=== PATIENT | female | born 1945 | race Two or more races ===

== ENCOUNTER 2018-05-14 11:47 | Observation (INO) | payer MEDICARE, OTHER ==
[2018-05-14 11:47] VITALS: BMI 23.0
[2018-05-14] MEDS ORDERED: Sodium Chloride 0.9% 1,000 ML IV STA (12:07)
--- NOTE | 2018-05-14 12:10 | ED PDOC ---
HPI: Chest Pain Time Seen by Provider: 05/14/18 12:00 Chief Complaint (Nursing): Weakness/Neurological Deficit Chief Complaint (Provider): Chest pain History Per: Patient History/Exam Limitations: no limitations Onset/Duration Of Symptoms: Days (2) Current Symptoms Are (Timing): Still Present Additional Complaint(s): Pt. with chest pain left side with tingles down left arm. No numbness, weakness, headaches, dizziness, cough, dyspnea. No fever. No back pain, abd p ain, nausea, vomit, diarrhea. Past Medical History Reviewed: Nursing Documentation, Vital Signs Vital Signs: Last Vital Signs Temp 97 F L 05/14/18 11:50 Pulse 59 L 05/14/18 11:50 Resp 18 05/14/18 11:50 BP 165/81 H 05/14/18 11:50 Pulse Ox 99 05/14/18 11:50 - Medical History PMH: HTN, Hypercholesterolemia - Surgical History Surgical History: No Surg Hx - Family History Family History: States: Unknown Family Hx - Social History Alcohol: None Drugs: Denies - Home Medications Home Medications: Ambulatory Orders Medication Instructions Recorded Atorvastatin [Lipitor] 10 mg PO DAILY 05/14/18 Icosapent Ethyl [Vascepa] 1 gm PO DAILY 05/14/18 Naproxen/Esomeprazole Mag [Vimovo 20 mg PO DAILY 05/14/18 Dr 375-20 mg Tablet] - Allergies Allergies/Adverse Reactions: Allergies Allergy/AdvReac Type Severity Reaction Status Date / Time No Known Allergies Allergy Verified 05/14/18 08:51 Review of Systems ROS Statement: Except As Marked, All Systems Reviewed And Found Negative Cardiovascular: Positive for: Chest Pain Neurological: Negative for: Weakness, Numbness, Confusion Physical Exam - Reviewed Nursing Documentation Reviewed: Yes Vital Signs Reviewed: Yes - Physical Exam Appears: Positive for: Non-toxic, No Acute Distress Head Exam: Positive for: ATRAUMATIC, NORMAL INSPECTION, NORMOCEPHALIC Skin: Positive for: Normal Color, Warm, DRY Eye Exam: Positive for: EOMI, Normal appearance, PERRL ENT: Positive for: Normal ENT Inspection Neck: Positive for: Normal, Painless ROM Cardiovascular/Chest: Positive for: Regular Rate, Rhythm Respiratory: Positive for: CNT, Normal Breath Sounds Gastrointestinal/Abdominal: Positive for: Normal Exam, Soft. Negative for: Tenderness Back: Positive for: Normal Inspection. Negative for: L CVA Tenderness, R CVA Tenderness Extremity: Positive for: Normal ROM. Negative for: Tenderness, Pedal Edema Neurologic/Psych: Positive for: Alert, speeder hand II-XII, Oriented. Negative for: Motor/Sensory Deficits - Laboratory Results Result Diagrams: 05/14/18 12:27 05/14/18 12:27 Interpretation Of Abn Labs: no acute - ECG ECG: Positive for: Interpreted By Me, Viewed By Me ECG Rhythm: Positive for: Normal QRS, Normal ST Segment, Sinus Bradycardia (54) O2 Sat by Pulse Oximetry: 99 Pulse Ox Interpretation: Normal - Progress ED Course And Treament: 1538: Stable. AAOx3. Pain free. Multiple risk factors and age. Will obs tele for further evaluation. Disposition - Clinical Impression Clinical Impression: Chest pain - Patient ED Disposition Is Patient to be Admitted: Yes Counseled Patient/Family Regarding: Studies Performed, Diagnosis - Disposition Disposition Time: 15:39 Condition: FAIR - Pt Status Changed To: Hospital Disposition Of: Observation - POA Present On Arrival: None
[2018-05-14 12:40] LABS: BASO % 0.5 % (0.0-2.0); EOS # 0.2 K/uL (0.0-0.7); EOS % 2.6 % (0.0-4.0); HEMOGLOBIN 13.4 g/dL (12.0-16.0); LYMPH # 2.6 K/uL (1.0-4.3); LYMPH % 28.8 % (20.0-40.0); MEAN CELL VOLUME 93.4 fl (81.0-99.0); MEAN CORPUSCULAR HEMOGLOBIN 30.8 pg (27.0-31.0); MEAN PLATELET VOLUME 12.1 fl (7.2-11.7); MONO % 10.9 % (0.0-10.0); NEUT # 5.2 K/uL (1.8-7.0); NEUT % 57.2 % (50.0-75.0); RBC 4.35 Mil/uL (3.80-5.20); RED CELL DISTRIBUTION WIDTH 14.3 % (11.5-14.5); WHITE BLOOD COUNT 9.1 K/uL (4.8-10.8)
[2018-05-14 12:42] LABS: PROTHROMBIN TIME 10.8 Seconds (9.8-13.1)
[2018-05-14 12:45] LABS: PARTIAL THROMBOPLASTIN TIME 36.7 Seconds (25.6-37.1)
[2018-05-14 12:49] LABS: ALB/GLOB RATIO 1.1 (1.0-2.1); BLOOD UREA NITROGEN 18 mg/dl (7-17); CALCIUM 8.7 mg/dL (8.4-10.2); GFR NON-AFRICAN AMERICAN > 60
[2018-05-14 12:53] LABS: ALT/SGPT 33 U/L (9-52); AST/SGOT 32 U/L (14-36)
--- NOTE | 2018-05-14 16:00 | CP.PCM.HP ---
<Nikki Smalls - Last Filed: 05/14/18 17:07> History of Present Illness - History of Present Illness History of Present Illness: Patient seen and examined at bedside and history as per patient. 73F p/w complaint of chest pressure yesterday that was constant the whole day with associated tingling sensation into LEFT arm. Patient reports pressure worsened with deep inspiration and movement. She denies any associated headache, dizziness, fevers, chills, cough, pain/burning (reflux), or sick contacts. She admits to being slightly anxious due to recent work-up for RIGHT breast mass. Currently she is symptom free. PMD: Dr Bojorquez, Dr Batista (Breast Surgeon) PMH: HTN, RIGHT breast mass (last imaging showing BIRADS-2, rec Q6M f/u) PSH: Hysterectomy, Bladder suspension, Tonsillectomy ALL: NKDA Present on Admission - Present on Admission Any Indicators Present on Admission: No Review of Systems - Review of Systems All systems: reviewed and no additional remarkable complaints except - Cardiovascular Cardiovascular: Chest Pain - Respiratory Respiratory: Pain on Inspiration Past Patient History - Past Social History Alcohol: None Drugs: Denies - CARDIAC Hx Hypercholesterolemia: Yes Hx Hypertension: Yes Meds Allergies/Adverse Reactions: Allergies Allergy/AdvReac Type Severity Reaction Status Date / Time No Known Allergies Allergy Verified 05/14/18 08:51 Physical Exam - Constitutional Appears: Well, Non-toxic, No Acute Distress - Head Exam Head Exam: ATRAUMATIC, NORMAL INSPECTION - Eye Exam Eye Exam: EOMI, Normal appearance, PERRL - ENT Exam ENT Exam: Mucous Membranes Moist, Normal Exam - Neck Exam Neck exam: Positive for: Normal Inspection - Respiratory Exam Respiratory Exam: Clear to Auscultation Bilateral, NORMAL BREATHING PATTERN. absent: Rales, Rhonchi, Wheezes - Cardiovascular Exam Cardiovascular Exam: REGULAR RHYTHM, +S1, +S2. absent: JVD - GI/Abdominal Exam GI & Abdominal Exam: Normal Bowel Sounds, Soft. absent: Tenderness - Extremities Exam Extremities exam: Positive for: full ROM, normal capillary refill, normal inspection, pedal pulses present. Negative for: calf tenderness, pedal edema - Neurological Exam Neurological exam: Alert, Oriented x3 - Psychiatric Exam Psychiatric exam: Normal Affect, Normal Mood - Skin Skin Exam: Dry, Intact Results - Vital Signs Recent Vital Signs: Last Vital Signs Temp 36.1 C L 10/03/18 11:50 Pulse 59 L 05/14/18 11:50 Resp 18 05/14/18 11:50 BP 137/67 05/14/18 15:17 Pulse Ox 99 05/14/18 15:39 - Labs Result Diagrams: 05/14/18 12:27 05/14/18 12:27 Labs: Laboratory Results - last 24 hr 05/14/18 05/14/18 05/14/18 12:24 12:27 12:27 WBC 9.1 RBC 4.35 Hgb 13.4 Hct 40.6 MCV 93.4 MCH 30.8 MCHC 33.0 RDW 14.3 Plt Count 172 MPV 12.1 H Neut % (Auto) 57.2 Lymph % (Auto) 28.8 [place] % (Auto) 10.9 H Eos % (Auto) 2.6 Baso % (Auto) 0.5 Neut # (Auto) 5.2 Lymph # (Auto) 2.6 [place] # (Auto) 1.0 H Eos # (Auto) 0.2 Baso # (Auto) 0.0 PT INR APTT Sodium 143 Potassium 4.4 Chloride 110 H Carbon Dioxide 25 Anion Gap 12 BUN 18 H Creatinine 0.6 L Est GFR ( Amer) > 60 Est GFR (Non-Af Amer) > 60 POC Glucose (mg/dL) 79 Random Glucose 98 Calcium 8.7 Total Bilirubin 0.6 AST 32 ALT 33 Alkaline Phosphatase 84 Troponin I < 0.0120 Total Protein 7.8 Albumin 4.0 Globulin 3.7 Albumin/Globulin Ratio 1.1 05/14/18 12:27 WBC RBC Hgb Hct MCV MCH MCHC RDW Plt Count MPV Neut % (Auto) Lymph % (Auto) [place] % (Auto) Eos % (Auto) Baso % (Auto) Neut # (Auto) Lymph # (Auto) [place] # (Auto) Eos # (Auto) Baso # (Auto) PT 10.8 INR 1.0 APTT 36.7 Sodium Potassium Chloride Carbon Dioxide Anion Gap BUN Creatinine Est GFR ( Amer) Est GFR (Non-Af Amer) POC Glucose (mg/dL) Random Glucose Calcium Total Bilirubin AST ALT Alkaline Phosphatase Troponin I Total Protein Albumin Globulin Albumin/Globulin Ratio Assessment & Plan (1) Chest pain Assessment and Plan: History, EKG, CXR, and Troponins benign for cardiac etiology, but will rule out ACS. - Admit to Telemetry - Repeat EKG in AM - Trend Troponins - repeat CXR, 2-view Status: Acute (2) HTN (hypertension) Assessment and Plan: Asymptomatic, chronic, controlled. - resume home medications - Monitor BP - BP control Status: Chronic (3) DVT prophylaxis Assessment and Plan: Lovenox 40mg, SC, HS Status: Acute <Galvan,Dariel D - Last Filed: 05/15/18 09:30> Results - Vital Signs Recent Vital Signs: Last Vital Signs Temp 97.9 F 05/15/18 08:47 Pulse 71 05/15/18 08:47 Resp 20 05/15/18 08:47 BP 106/65 05/15/18 08:47 Pulse Ox 95 05/15/18 08:47 - Labs Result Diagrams: 05/14/18 12:27 05/14/18 12:27 Labs: Laboratory Results - last 24 hr 05/14/18 05/14/18 05/14/18 12:24 12:27 12:27 WBC 9.1 RBC 4.35 Hgb 13.4 Hct 40.6 MCV 93.4 MCH 30.8 MCHC 33.0 RDW 14.3 Plt Count 172 MPV 12.1 H Neut % (Auto) 57.2 Lymph % (Auto) 28.8 [place] % (Auto) 10.9 H Eos % (Auto) 2.6 Baso % (Auto) 0.5 Neut # (Auto) 5.2 Lymph # (Auto) 2.6 [place] # (Auto) 1.0 H Eos # (Auto) 0.2 Baso # (Auto) 0.0 PT INR APTT Sodium 143 Potassium 4.4 Chloride 110 H Carbon Dioxide 25 Anion Gap 12 BUN 18 H Creatinine 0.6 L Est GFR ( Amer) > 60 Est GFR (Non-Af Amer) > 60 POC Glucose (mg/dL) 79 Random Glucose 98 Calcium 8.7 Total Bilirubin 0.6 AST 32 ALT 33 Alkaline Phosphatase 84 Troponin I < 0.0120 Total Protein 7.8 Albumin 4.0 Globulin 3.7 Albumin/Globulin Ratio 1.1 05/14/18 05/14/18 05/15/18 12:27 19:59 05:18 WBC RBC Hgb Hct MCV MCH MCHC RDW Plt Count MPV Neut % (Auto) Lymph % (Auto) [place] % (Auto) Eos % (Auto) Baso % (Auto) Neut # (Auto) Lymph # (Auto) [place] # (Auto) Eos # (Auto) Baso # (Auto) PT 10.8 INR 1.0 APTT 36.7 Sodium Potassium Chloride Carbon Dioxide Anion Gap BUN Creatinine Est GFR ( Amer) Est GFR (Non-Af Amer) POC Glucose (mg/dL) Random Glucose Calcium Total Bilirubin AST ALT Alkaline Phosphatase Troponin I < 0.0120 < 0.0120 Total Protein Albumin Globulin Albumin/Globulin Ratio Attending/Attestation - Attestation I have personally seen and examined this patient.: Yes I have fully participated in the care of the patient.: Yes I have reviewed all pertinent clinical information: Yes
--- NOTE | 2018-05-14 16:31 | CARD ---
APPROVED REPORT Date of service: 05/14/2018 EKG Measurement Heart [id number] <Conclusion> Sinus bradycardia Otherwise normal ECG
--- NOTE | 2018-05-14 16:51 | RAD ---
Date of service: 05/14/2018 HISTORY: chest pain COMPARISON: No prior. FINDINGS: LUNGS: No active pulmonary disease. PLEURA: No significant pleural effusion identified, no pneumothorax apparent. CARDIOVASCULAR: Normal. OSSEOUS STRUCTURES: No significant abnormalities. VISUALIZED UPPER ABDOMEN: Normal. OTHER FINDINGS: None. IMPRESSION: No active disease.
[2018-05-14] MEDS: Omega-3-Acid Ethyl Esters 1 GM Cap PO SCH (21:11)
[2018-05-14] MEDS ORDERED: Enoxaparin 40 mg Syringe SC SCH (22:00)
[2018-05-15 08:47] VITALS: RESP 20
[2018-05-15] MEDS ORDERED: Pantoprazole 20 mg EC Tab PO SCH (09:00)
[2018-05-15] MEDS ORDERED: Naproxen 500 MG TAB PO SCH (09:00)
[2018-05-15] MEDS ORDERED: Calcium-Vit D 500 mg-200 Units Tab UD PO SCH (09:00)
[2018-05-15] MEDS ORDERED: Albuterol-Ipratrop 3 mg / 0.5 (3 ml) UD ONE (09:46)
[2018-05-15] MEDS: Omega-3-Acid Ethyl Esters 1 GM Cap PO SCH (10:20)
--- NOTE | 2018-05-15 10:46 | CP.PCM.PN ---
Subjective - Date & Time of Evaluation Date of Evaluation: 05/15/18 Time of Evaluation: 10:42 - Subjective Subjective: 73 y/o female seen and evaluated at bedside with complaints of chest pain with associated tingling sensation into left arm. Patient still complains of minimal chest pain, worsened with deep inspiration and movement. Patient further compl ains of associated headache, but denies dizziness, change in vision, neck pain, fevers, chills, cough, pain/burning (reflux), or sick contacts. Patient was recently being worked up for a breast mass, and admits to anxiety due to that. Objective - Vital Signs/Intake and Output Vital Signs (last 24 hours): Temp Pulse Resp BP Pulse Ox 97.9 F 71 20 106/65 95 05/15/18 08:47 05/15/18 08:47 05/15/18 08:47 05/15/18 08:47 05/15/18 08:47 - Medications Medications: Current Medications Atorvastatin Calcium (Lipitor) 10 mg PO DAILY [facility] Last Admin: 05/15/18 10:20 Dose: 10 mg Calcium/Vitamin D (Oyster Shell Calcium/Vitamin D 500 Mg-200 Iu) 1 tab PO BID [facility] Last Admin: 05/15/18 10:18 Dose: 1 tab Enoxaparin Sodium (Lovenox) 40 mg SC HS [facility]; Protocol Last Admin: 05/14/18 22:35 Dose: 40 mg Hydrochlorothiazide (Hydrodiuril) 25 mg PO DAILY [facility] Last Admin: 05/15/18 10:20 Dose: 25 mg Naproxen (Naproxen) 500 mg PO DAILY [facility] Last Admin: 05/15/18 10:19 Dose: 500 mg [id number] Ethyl Esters (Lovaza) 2 gm PO Q12 [facility] Last Admin: 05/15/18 10:20 Dose: 2 gm Pantoprazole Sodium (Protonix Ec Tab) 20 mg PO DAILY [facility] Last Admin: 05/15/18 10:20 Dose: 20 mg - Labs Labs: 05/14/18 12:27 05/14/18 12:27 PT 10.8 Seconds (9.8-13.1) 05/14/18 12:27 INR 1.0 05/14/18 12:27 APTT 36.7 Seconds (25.6-37.1) 05/14/18 12:27 - Constitutional Appears: Well, Non-toxic, No Acute Distress - Head Exam Head Exam: ATRAUMATIC, NORMOCEPHALIC - Eye Exam Eye Exam: Normal appearance, PERRL - ENT Exam ENT Exam: Mucous Membranes Moist - Neck Exam Neck Exam: Full ROM. absent: Lymphadenopathy, Meningismus, Tenderness - Respiratory Exam Respiratory Exam: Clear to Ausculation Bilateral, NORMAL BREATHING PATTERN. absent: Rales, Rhonchi, Wheezes - Cardiovascular Exam Cardiovascular Exam: REGULAR RHYTHM, +S1, +S2. absent: JVD - GI/Abdominal Exam GI & Abdominal Exam: Soft, Normal Bowel Sounds. absent: Firm, Guarding, Rigid, Tenderness - Extremities Exam Extremities Exam: Normal Capillary Refill, Normal Inspection. absent: Calf Tenderness, Pedal Edema - Back Exam Back Exam: Full ROM, NORMAL INSPECTION. absent: CVA tenderness (L), CVA tenderness (R) - Neurological Exam Neurological Exam: Alert, Awake, Oriented x3 - Psychiatric Exam Psychiatric exam: Normal Affect, Normal Mood Assessment and Plan - Assessment and Plan (Free Text) Assessment: 73 y/o female admitted- EKG, CXR, and Troponins benign for cardiac etiology, but will rule out ACS. Plan: (1) Chest pain - Repeat EKG in AM- normal sinus rhythm, - Trend Troponins- < 0.012 X (3) - Patient complained of headache, will monitor post pain medication Naproxen - Repeat vitals- 97.9, pulse 71, BP 106/75, RR 20, Oxygen 95% (2) HTN (hypertension) Asymptomatic, chronic, controlled. - resume home medications - Monitor BP - BP control (3) DVT prophylaxis Lovenox 40mg, SC, HS
--- NOTE | 2018-05-15 11:47 | CP.PCM.DIS ---
Provider - Provider Date of Admission: 05/14/18 15:37 Attending physician: Dariel Galvan MD Time Spent in preparation of Discharge (in minutes): 30 Diagnosis - Discharge Diagnosis (1) Chest pain not due to acute coronary syndrome Status: Acute Hospital Course - Lab Results Lab Results: Most Recent Lab Values WBC 9.1 K/uL (4.8-10.8) 05/14/18 12: RBC 4.35 Mil/uL (3.80-5.20) 05/14/18 12:27 Hgb 13.4 g/dL (12.0-16.0) 05/14/18 12: Hct 40.6 % (34.0-47.0) 05/14/18 12: MCV 93.4 fl (81.0-99.0) 05/14/18 12: MCH 30.8 pg (27.0-31.0) 05/14/18 12: MCHC 33.0 g/dL (33.0-37.0) 05/14/18 12: RDW 14.3 % (11.5-14.5) 05/14/18 12: Plt Count 172 K/uL (130-400) 05/14/18 12: MPV 12.1 fl (7.2-11.7) H 05/14/18 12: Neut % (Auto) 57.2 % (50.0-75.0) 05/14/18 12: Lymph % (Auto) 28.8 % (20.0-40.0) 05/14/18 12: [place] % (Auto) 10.9 % (0.0-10.0) H 05/14/18 12: Eos % (Auto) 2.6 % (0.0-4.0) 05/14/18 12: Baso % (Auto) 0.5 % (0.0-2.0) 05/14/18 12: Neut # (Auto) 5.2 K/uL (1.8-7.0) 05/14/18 12: Lymph # (Auto) 2.6 K/uL (1.0-4.3) 05/14/18 12:27 [place] # (Auto) 1.0 K/uL (0.0-0.8) H 05/14/18 12:27 Eos # (Auto) 0.2 K/uL (0.0-0.7) 05/14/18 12:27 Baso # (Auto) 0.0 K/uL (0.0-0.2) 05/14/18 12:27 PT 10.8 Seconds (9.8-13.1) 05/14/18 12: INR 1.0 05/14/18 12: APTT 36.7 Seconds (25.6-37.1) 05/14/18 12:27 Sodium 143 mmol/l (132-148) 05/14/18 12:27 Potassium 4.4 MMOL/L (3.6-5.0) 05/14/18 12:27 Chloride 110 mmol/L (98-107) H 05/14/18 12:27 Carbon Dioxide 25 mmol/L (22-30) 05/14/18 12:27 Anion Gap 12 (10-20) 05/14/18 12: BUN 18 mg/dl (7-17) H 05/14/18 12:27 Creatinine 0.6 mg/dl (0.7-1.2) L 05/14/18 12:27 Est GFR ( Amer) > 60 05/14/18 12:27 Est GFR (Non-Af Amer) > 60 05/14/18 12:27 POC Glucose (mg/dL) 79 mg/dL (65-110) 05/14/18 12:24 Random Glucose 98 mg/dL (65-105) 05/14/18 12: Calcium 8.7 mg/dL (8.4-10.2) 05/14/18 12:27 Total Bilirubin 0.6 mg/dl (0.2-1.3) 05/14/18 12:27 AST 32 U/L (14-36) 05/14/18 12:27 ALT 33 U/L (9-52) 05/14/18 12:27 Alkaline Phosphatase 84 U/L (38-126) 05/14/18 12:27 Troponin I < 0.0120 ng/mL (0.00-0.120) 05/15/18 05:18 Total Protein 7.8 G/DL (6.3-8.2) 05/14/18 12:27 Albumin 4.0 g/dL (3.5-5.0) 05/14/18 12:27 Globulin 3.7 gm/dL (2.2-3.9) 05/14/18 12:27 Albumin/Globulin Ratio 1.1 (1.0-2.1) 05/14/18 12:27 - Hospital Course Hospital Course: 73 y/o female seen and evaluated at bedside with complaints of chest pain with associated tingling sensation into left arm. Patient was admitted to Telemetry for observation. Patient complains of minimal chest pain, worsened with deep inspiration and movement. Patient further complains of associated headache, but denies dizziness, change in vision, neck pain, fevers, chills, cough, pain/burning (reflux), or sick contacts. Patient was recently being worked up for a breast mass, and admits to anxiety due to that. Patient EKG, CXR, and Troponins benign for cardiac etiology Plan: (1) Chest pain - Repeat EKG in AM- normal sinus rhythm - Trend Troponins x 3 negative (2) HTN (hypertension) Asymptomatic, chronic, controlled. - resume home medications - Date & Time of H&P Date of H&P: 05/15/18 Time of H&P: 11:57 Discharge Exam - Head Exam Head Exam: ATRAUMATIC, NORMOCEPHALIC - Eye Exam Eye Exam: Normal appearance, PERRL - ENT Exam ENT Exam: Mucous Membranes Moist - Neck Exam Neck exam: Full Rom - Respiratory Exam Respiratory Exam: NORMAL BREATHING PATTERN, UNREMARKABLE. absent: Rales, Rhonchi, Wheezes, Respiratory Distress - Cardiovascular Exam Cardiovascular Exam: REGULAR RHYTHM, +S1, +S2 - GI/Abdominal Exam GI & Abdominal Exam: Normal Bowel Sounds, Soft. absent: Distended, Firm, Guarding - Extremities Exam Extremities exam: full ROM, normal capillary refill - Back Exam Back exam: NORMAL INSPECTION. absent: CVA tenderness (L), CVA tenderness (R) - Neurological Exam Neurological exam: Alert, Oriented x3 - Psychiatric Exam Psychiatric exam: Normal Affect, Normal Mood - Skin Skin Exam: Dry, Normal Color, Warm Discharge Plan - Follow Up Plan Condition: GOOD Disposition: HOME/ ROUTINE Patient education suggested?: Yes Instructions: Chest Pain, Hypertension (DC), Hypertension (GEN) Additional Instructions: Please follow up with PMD in 1-2 days, if chest pain worsens or recurs, please return to ER Referrals: Von Bojorquez MD [Staff Provider] -
[2018-05-15 12:58] VITALS: BP 118/65; PULSE 63; TEMP 98.4; O2SAT 97
--- NOTE | 2018-05-15 16:02 | CARD ---
APPROVED REPORT Date of service: 05/15/2018 EKG Measurement Heart [id number] ID [id number] <Conclusion> Normal sinus rhythm Normal ECG
== END 2018-05-15 16:22 | disposition home or self-care (01) ==
LOC: H.ER 11:47 → H.ERHOLD 15:37 → H.TEL 05-15 03:47
DX: R07.89 Other chest pain (principal); I10 Essential (primary) hypertension; E78.00 Pure hypercholesterolemia, unspecified
CPT/HCPCS: 36415; 71045; 80053; 82948; 84484; 85025; 85610; 85730; 93005; 96372; 99285; G0378; J1650; J7030